=== PATIENT | female | born 1940 | race African-American/Black ===

== ENCOUNTER 2021-12-20 15:20 | Emergency (ER) | payer BC, MEDICARE, OTHER ==
[~2021-12-20] VITALS: Ht 162.6 cm; Wt 60.0 kg
[~2021-12-20 15:20] MED LIST: BENA20TA77; DONE-53 PO; ESCI-7 PO; FERR-43 PO; MEMA10TA2; RISP05 PO
[2021-12-20 17:27] LABS: HEMATOCRIT. 32.4 % (36.0-48.0); HEMOGLOBIN. 10.7 g/dL (12.0-16.0); MEAN CORPUSCULAR HEMOGLOBIN 31.1 pg (28.0-32.0); MEAN CORPUSCULAR VOLUME 94.2 fL (81.0-99.0); MEAN PLATELET VOLUME 10.6 fl (7.4-10.4); PLATELET 174 x1000/uL (130-400); RED BLOOD CELL COUNT 3.44 mill/uL (4.2-5.4); RED CELL DISTRIBUTION WIDTH 14.4 % (11.6-14.6)
[2021-12-20 18:30] LABS: PLATELET ESTIMATE NORMAL
[2021-12-20 18:30] LABS: CHLORIDE 99 mEq/L (98-107)
[2021-12-20 20:42] VITALS: BP 152/106
[2021-12-20 20:59] LABS: CLARITY URINE CLEAR (CLEAR); COLOR URINE YELLOW (YELLOW); KETONES URINE NEGATIVE (NEGATIVE); LEUKOCYTE ESTERASE URINE NEGATIVE (NEGATIVE); NITRITE URINE NEGATIVE (NEGATIVE); OCCULT BLOOD URINE 2+ (NEGATIVE); PH URINE 7.5 (4.5-8.0); PROTEIN URINE 4+ (NEGATIVE); SPECIFIC GRAVITY URINE 1.011 (1.005-1.030); UROBILINOGEN URINE 0.2 E.U./dL (0.2-1.0)
[2021-12-20] MEDS ORDERED: SODIUM CHLORIDE 0.9% 1,000 ML IV ONE (21:00)
== END 2021-12-21 03:08 | disposition home or self-care (01) ==
LOC: ER 15:20
DX: T83.83XA Hemorrhage due to genitourinary prosthetic devices, implants and grafts, initial encounter (principal); N17.9 Acute kidney failure, unspecified; I10 Essential (primary) hypertension; Y84.6 Urinary catheterization as the cause of abnormal reaction of the patient, or of later complication, without mention of misadventure at the time of the procedure; Y92.018 Other place in single-family (private) house as the place of occurrence of the external cause
CPT/HCPCS: 36415; 80048; 80053; 81003; 85025; 96360; 99284; J7030; A4315